=== PATIENT | male | born 1990 | race Caucasian/White ===

== ENCOUNTER 2016-10-30 13:39 | Emergency (ER) | payer OTHER ==
[~2016-10-30] VITALS: Ht 180.3 cm; Wt 138.5 kg
[~2016-10-30 13:39] MED LIST: HYDR-3498 PO; IBUP-1542 PO
[2016-10-30 14:24] VITALS: Ht 180.3 cm; Wt 138.5 kg
--- NOTE | 2016-10-30 14:48 | ERD ---
ER Documentation Chief Complaint Date/Time DATE: 10/30/16 Chief Complaint Laceration to left third digit HPI The patient is a 26-year-old male who presents to the Emergency Department with complaint of the laceration and abrasion to the third and fourth digits of the left hand. The patient reports that he was upset because his girlfriend was breaking up with him, and snapped his [employer] sunglasses, which caused a laceration to the distal pad of the left third digit and an abrasion to the distal index finger. He denies any numbness, paresthesias or weakness the distal extremity. Denies any restricted range of motion. Denies any active bleeding. He denies any pain at this time, rating his current discomfort as 0 out of 10. Tetanus status is not up-to-date. ROS All systems reviewed and are negative except as per history of present illness. Medications Home Meds Active Scripts Hydrocodone Bit-Acetaminophen* (Cubero*) 5-325 Mg Tab, 1 TAB PO Q6 Y for PAIN, # 7 TAB Prov:DAVE,JAROD C 11/01/15 Ibuprofen* (Motrin*) 600 Mg Tab, 600 MG PO Q6, #30 TAB Prov:DAVE,JAROD C 11/01/15 Allergies Allergies: Coded Allergies: No Known Allergy (Unverified , 10/30/16) PMhx/Soc History of Surgery: No Anesthesia Reaction: No Hx Neurological Disorder: No Hx Respiratory Disorders: No Hx Cardiac Disorders: No Hx Psychiatric Problems: No Hx Miscellaneous Medical Probl: No Hx Alcohol Use: Yes Hx Substance Use: No Hx Tobacco Use: No Physical Exam Vitals Vital Signs Date Time Temp Pulse Resp B/P Pulse Ox O2 Delivery O2 Flow Rate FiO2 10/30/16 14:24 98.8 97 20 169/109 97 Physical Exam GENERAL: Well-developed, well-nourished, male, in no acute distress. HEENT: Head is normocephalic, atraumatic. No scleral pallor or icterus. Conjunctiva pink. Moist mucous membranes. NECK: Supple. RESPIRATORY: Lungs are clear to auscultation bilaterally. Normal expiratory effort. CARDIOVASCULAR: Regular rate and rhythm. S1 and S2 normal. EXTREMITIES: No clubbing, cyanosis, or edema. Normal skin perfusion. Full range of motion of both the upper and lower extremities bilaterally. Normal flexion and extension at the MCP, PIP and DIP joints of digits. Muscle tone is normal. No focal swelling or erythema. Distal pulses are palpable, 2+ bilaterally. Capillary refill is less than 2 seconds. NEUROLOGIC: The patient is alert, awake, and oriented x 3. No focal neurologic deficits. Motor and sensation grossly intact. INTEGUMENT: 1 cm superficial well-approximated, nonbleeding laceration to the distal pad of the left third digit, ulnar aspect. 0.5 cm superficial abrasion to the distal left index digit. No underlying nailbed injury visualized. No crepitus. No foreign bodies. PSYCHIATRIC: Cooperative. Appropriate. Results 24 hrs Current Medications Medications (Trade) Dose Ordered Sig/Jeanne Route PRN Reason Start Time Stop Time Status Last Admin Dose Admin Diphtheria/ Tetanus/Acell Pertussis (Adacel) 0.5 ml ONCE ONCE IM* 10/30/16 15:00 10/30/16 15:01 DC 10/30/16 14:54 Procedures/MDM PROCEDURE: SUTURE PLACEMENT INDICATION: Laceration to distal left third digit. CONSENT:Consent was obtained from the patient prior to the procedure. Indications, risks, and benefits were explained at length. PROCEDURE SUMMARY: A timeout protocol was performed prior to initiating the procedure. The patient was positioned appropriately. NaCl was used for wound irrigation, and the wound was then explored. No foreign body visualized. No tendon injury. The area was prepared and draped in the usual sterile manner with the wound exposed. Dermabond was placed with good wound closure and wound approximation. No bleeding present. The patient tolerated the procedure well without complications. Standard post- procedure care was explained and return precautions were given. MEDICAL DECISION MAKING: This is a patient presenting to the emergency department with a laceration that was closed with Dermabond. The patient had good wound closure and wound approximation, and tolerated the procedure well. The patient was neurovascularly intact prior to and status post laceration repair. Standard post-procedure care was explained to the patient at length. Tetanus is updated in the Emergency Department. The patient's abrasion was cleansed. Bacitracin and sterile dressing placed. At this time the patient in stable condition and not experiencing any pain and therefore can be discharged home with strict return precautions for signs of infection, uncontrollable pain , or any form of worsening or deteriorating condition. The patient is advised to follow up with their primary medical provider in 2 days for wound check, reevaluation and further management, or to return to the ER sooner for any worsening symptoms. I shared my medical decision making and plan with the patient at length and in great detail and the patient verbally understands and agrees with the plan for further observation and care as an outpatient. At the time of discharge all questions were answered. Departure Diagnosis: Primary Impression: Laceration of left middle finger Additional Impression: Abrasion of left index finger, initial encounter Condition: Stable Patient Instructions: Abrasion, Laceration, Extremity (Skin Glue) Additional Instructions: Follow-up with your primary medical provider in 2-3 days for wound check, reevaluation and further management. Return to the ER sooner for any new or worsening symptoms. SEVERINO MATOS PA-C October 30, 2016 14:48 SEVEIRNO MATOS PA-C October 30, 2016 14:48
[2016-10-30] MEDS ORDERED: DIPHTH/TET/ACEL PERTUSS (ADULT) 0.5 ML VIAL IM* ONE (15:00)
== END 2016-10-30 16:12 | disposition home or self-care (01) ==
LOC: FTE 13:39
DX: S61.213A Laceration without foreign body of left middle finger without damage to nail, initial encounter (principal); S60.411A Abrasion of left index finger, initial encounter; W25.XXXA Contact with sharp glass, initial encounter; Y92.9 Unspecified place or not applicable; Z23 Encounter for immunization
CPT/HCPCS: 12001; 90471; 90715; Z7502

== ENCOUNTER 2019-01-25 21:41 | Emergency (ER) | payer OTHER ==
[~2019-01-25] VITALS: Ht 180.3 cm; Wt 96.5 kg
[2019-01-25 21:50] VITALS: Ht 180.3 cm; Wt 96.5 kg
[2019-01-25] MEDS ORDERED: HYDROCODONE/APAP (10/325) TAB PO ONE (23:30)
[2019-01-26 00:29] VITALS: BP 135/78; PULSE 82; RESP 16
== END 2019-01-26 00:30 | disposition home or self-care (01) ==
LOC: FTE 21:41
DX: K08.89 Other specified disorders of teeth and supporting structures (principal); F17.210 Nicotine dependence, cigarettes, uncomplicated
CPT/HCPCS: 99283